=== PATIENT | male | born 1990 | race Caucasian/White ===

== ENCOUNTER 2017-10-31 15:42 | Emergency (ER) | payer MEDICAID, SELFPAY ==
[2017-10-31 15:44] VITALS: BP 135/88; PULSE 84; RESP 16; TEMP 36.4; O2SAT 98
--- NOTE | 2017-10-31 16:01 | ED.GENADUL_ITS ---
Disposition Clinical Impression: Back pain, Urinary retention Disposition: LYRIC SMALL ([facility]) Condition: Stable Medical Decision Making - Medical Decision Making This is a 27-year-old male who presents with left-sided back pain with radiation of the pain down his left buttock and left leg stopping at the knee and the posterior aspect. It occurred while watching off of a rock at [facility]. The pain did not occur from the landing, he did not landed first on his neck. He landed very softly with no significant pain from the actual landing in the water. Physical exam demonstrates mild midline tenderness in the lower thoracic and upper lumbar vertebra. No signs of saddle anesthesia, good rectal tone, good muscle strength and sensation in his lower extremities. I see no physical exam findings suggestive of spinal cord compression. Due to his history of back problems, and his current pain now we will treat with analgesia, and obtain imaging to evaluate for any potential thoracic or lumbar pathology. I feel that if imaging is negative at this time with no neurologic deficits or signs or symptoms of red flags concerning for cord compression he will most likely be able to be discharged home if pain can be controlled or improved. CT imaging has returned and demonstrates per virtual radiology no evidence of acute bony abnormality, or cord compression for the thoracic spine lumbar spine and pelvis. Reevaluation of the patient after medications demonstrates continued notable back pain. We did have the patient urinate, and a post urination bladder scan reveals 300 mL of retained urine. Patient states that he cannot feel the need to pee anymore, and feels like nothing is in there. We attempted for 30 minutes to have continued urination and the patient had no additional urination. In addition to this I did perform a repeat rectal exam, and on repeat exam the patient's rectal tone is concerning for a decreased compared to prior initial examination. With notable urinary retention, in spite of negative CT imaging was very concerned for potential cord injury. I did contact the [facility] neurosurgery team, and discussed the case with them. We have no MRI capabilities here in the weekend with the patient's acute symptoms I feel he does need an urgent MRI. I discussed the case with Dr. Colón, he agrees with this plan and recommends immediate transfer for further evaluation for any year to year transfer. I discussed the case with who accepted the patient for transfer via EMS for an ER to ER transfer. I have extensively reviewed the treatment plan with the patient. I have addressed all patient concerns at this time. I have also discussed the plan with the admitting physician and they agree with the current assessment and plan and have agreed to assume responsibility for the patient. All parties demonstrate verbal understanding and agreement with our assessment and plan at this time. History of Present Illness - General Chief complaint: Nk/Back Pain Stated complaint: BACK INJ Time Seen by Provider: 10/31/17 15:45 - History of Present Illness Initial comments: This is a 27-year-old male with no past medical history who presents for left back pain. 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 He states that today he was jumping off a rock at [facility], and as soon as he lifted off with his left foot he noticed significant pain in his back going down his left buttock and down his leg on the left. He did not land on any rocks, or have any trauma. After he was in the water he had discontinued pain, which was worsened with movement or palpation. Position of these included a flexed position with right side bending of the lumbar spine. Symptoms were worsened with movement, palpation, and movement of the leg and hip. The patient admits to a burning pain in the back of his leg extending down to his posterior knee, but denies any numbness, tingling, or weakness. He denies any bowel or bladder incontinence. He denies any saddle anesthesia. He denies vomiting, diarrhea, chest pain, shortness of breath, fever chills rash. He denies any previous surgeries, other medical problems, pertinent family history, IV illicit drug use. He has no other complaints at this time. - Related Data Acetaminophen 1,000 mg PO PRN PRN 12/14/16 Allergies Allergy/AdvReac Type Severity Reaction Status Date / Time No Known Allergies Allergy Unverified 10/31/17 15:48 Review of Systems Other: 10 point review of systems was performed, pertinent positives and negatives are noted in the history of present illness. Past Medical History - Past Medical History Medical history: no medical history Surgical history: no surgical history - Social History Alcohol use: none Drug use: none General Exam - Other Other exam information: 1.Const: Well-nourished, Well-developed, appearing stated age 2.Eyes: PERRL, no conjunctival injection, and symmetrical lids. 3.ENT: Atraumatic external nose and ears. Moist MM. Neck: Symmetric, trachea midline, No thyromegaly. 4.CVS: +S1/S2, No murmurs or gallops. Peripheral pulses 2+ and equal in all extremities. Brisk capillary refill in all extremities. 5.RESP: Unlabored respiratory effort. Clear to auscultation bilaterally. No wheezes rales or rhonchi 6.GI: Soft, Nontender/Nondistended, No hepatosplenomegaly. No guarding or rebound. 7.MSK: Normocephalic/Atraumatic, Extremities w/o deformity or ttp No cyanosis or clubbing, Normal movement of all extremities, No midline tenderness to palpation over the CS spine. He does have tenderness over his lower thoracic spine and upper lumbar spine for midline palpation. Mild tenderness for paraspinal regions bilaterally. Patient has +5 out of 5 strength in the lower extremities in dorsiflexion and plantarflexion, knee flexion and extension, hip flexion and extension. There is +2 over 2 dorsalis pedis pulses bilaterally. There is normal sensation to the skin with light touch at the foot, knee, and hip. Normal saddle sensation. Good sensation over the deep sural nerve area bilaterally. Hip is stable. Pelvis is stable. Worsening pain with flexion and extension of the left hip. Good rectal tone is noted on exam. Reflexes are +2 over 4 in the patellar. +5 out of 5 strength in the medial, ulnar, radial nerve distribution bilaterally in the hands as well as intact light touch sensation to these dermatomes on the hands. 8.Skin: Warm, Dry. No rashes or lesions. 9.Neuro: front line leader II-XII grossly intact. Sensation grossly intact, no focal neurologic deficits. 10.Psych: (AAO) x3. Appropriate mood and affect Course Vital Signs - 24 hr 10/31/17 15:44 Temperature 36.4 C L Pulse 84 Respiratory 16 Rate Blood Pressure 135/88 Pulse Oximetry 98
--- NOTE | 2017-10-31 16:01 | DI.RPTCT_ITS ---
SYMPTOM/DIAGNOSIS: MIDLINE LUMBAR PAIN AFTER JUMPING OFF ROCK. CONCERN FOR SPINAL CORD CT THORACIC SPINE: Multiple contiguous axial images of the thoracic spine were obtained. Sagittal and coronal reformatted images were evaluated on the [employer] work station. There is normal alignment. No acute fractures or subluxations. Paraspinal soft tissues are unremarkable. IMPRESSION: Negative CT scan of the thoracic spine. CT LUMBAR SPINE: Multiple contiguous axial images of the lumbar spine were obtained. Sagittal and coronal reformatted images were evaluated on the [employer] work station. There are no priors for comparison. There is normal alignment of the lumbar spine. No acute fractures or subluxations are seen. Mild degenerative changes are present. The paraspinal soft tissues are unremarkable. At L4-L5 there is a diffuse disc bulge with hypertrophy of the ligamentum flavum and facets causing mild narrowing of the central spinal canal. IMPRESSION: No acute abnormality in the lumbar spine.
[2017-10-31] MEDS: Lidocaine 5% Patch 1 PATCH TP (16:09)
[2017-10-31] MEDS: Acetaminophen 500 MG TAB 1000 MG PO (16:09)
[2017-10-31] MEDS: Normal Saline 1,000 ML 1000 ML IV (16:11)
[2017-10-31] MEDS: methylPREDNISolone SUCC 125 MG VIAL IVP (16:14)
[2017-10-31] MEDS: Ketorolac 30 MG/ML VIAL IVP (16:17)
--- NOTE | 2017-10-31 17:37 | DI.RPTCT_ITS ---
SYMPTOM/DIAGNOSIS: LOWER BACK PAIN CT SCAN PELVIS: Non contrast examination was performed. No acute fracture or dislocation is identified. The pelvic structures appear grossly unremarkable. Soft tissues are unremarkable. IMPRESSION: Negative examination.
--- NOTE | 2017-10-31 17:38 | DI.VRAD_ITS ---
EXAM: CT Thoracic Spine Without Intravenous Contrast CLINICAL HISTORY: 27 years old, male; Injury or trauma; Fall; Initial encounter; Blunt trauma (contusions or hematomas); Injury details: Midline lumbar pain, jumping off rock. Concern for spinal cord injury TECHNIQUE: Axial computed tomography images of the thoracic spine without intravenous contrast. All CT scans at this facility use at least one of these dose optimization techniques: automated exposure control; mA and/or kV adjustment per patient size (includes targeted exams where dose is matched to clinical indication); or iterative reconstruction. COMPARISON: No relevant prior studies available. FINDINGS: No focal subluxation. No acute fracture. Paraspinal soft tissues unremarkable. Impression: No evidence of acute bony abnormality. EXAM: CT Lumbar Spine Without Intravenous Contrast CLINICAL HISTORY: 27 years old, male; Injury or trauma; Fall; Initial encounter; Blunt trauma (contusions or hematomas); Injury details: Midline lumbar pain, jumping off rock. Concern for spinal cord injury TECHNIQUE: Axial computed tomography images of the lumbar spine without intravenous contrast. All CT scans at this facility use at least one of these dose optimization techniques: automated exposure control; mA and/or kV adjustment per patient size (includes targeted exams where dose is matched to clinical indication); or iterative reconstruction. COMPARISON: No relevant prior studies available. FINDINGS: No focal subluxation. No acute fracture. Paraspinal soft tissues unremarkable. Impression: No evidence of acute bony abnormality. Dictated and Authenticated by: Jimi Ramirez MD. Ordering:YESSI CELAYA MD
--- NOTE | 2017-10-31 17:39 | DI.VRAD_ITS ---
EXAM: CT Pelvis Without Intravenous Contrast CLINICAL HISTORY: 27 years old, male; Injury or trauma; Fall; Initial encounter; Blunt trauma (contusions or hematomas); Does not apply; Pelvic region; Injury details: Low back pain, jumped off rock; Additional info: Zeynep TECHNIQUE: Axial computed tomography images of the pelvis without intravenous contrast. All CT scans at this facility use at least one of these dose optimization techniques: automated exposure control; mA and/or kV adjustment per patient size (includes targeted exams where dose is matched to clinical indication); or iterative reconstruction. Coronal and sagittal reformatted images were created and reviewed. COMPARISON: CT - RENAL COLIC WO CONTRAST 2016-10-29 06:32 FINDINGS: Bony structures intact. No abnormal fluid collections. Joint spaces well-maintained. IMPRESSION: No evidence of acute bony abnormality. Dictated and Authenticated by: Jimi Ramirez MD. Ordering:YESSI CELAYA MD
[2017-10-31] MEDS: HYDROmorphone 2 MG/ML VIAL 1 MG IVP (18:13)
[2017-10-31 18:15] VITALS: BP 143/90; PULSE 92; RESP 18; O2SAT 98
[2017-10-31 18:15] LABS: Bilirubin Negative (Negative); Blood Negative (Negative); Clarity Clear; Glucose Negative (Negative); Ketones Trace mg/dL (Negative); Leukocyte Esterase Negative (Negative); Nitrite Negative (Negative); Urobilinogen 0.2 EU/dL (Up TO 0.2); pH 7.5 (5-8)
[2017-10-31 19:22] VITALS: BP 144/81; PULSE 68; RESP 16; O2SAT 100
== END 2017-10-31 19:25 | disposition short-term general hospital (02) ==
PROVIDERS: Emergency Provider Student in an Organized Health Care Education/Training Program
DX: M54.5 Low back pain (principal); R33.8 Other retention of urine
CPT/HCPCS: 96361; 96374; 96375; 99285; 72128; 72131; 72192; 81003; J1885; J2930

== ENCOUNTER 2023-09-10 14:59 | Emergency (ER) | payer MEDICAID, SELFPAY ==
[2023-09-10 15:02] VITALS: BP 137/97; PULSE 79; RESP 16; TEMP 37.1; O2SAT 96
--- NOTE | 2023-09-10 15:30 | ED.GENADUL_ITS ---
Discharge Plan Disposition Patient Disposition: Home Condition: Stable Discharge Details Clinical Impression: Back pain, Radiculopathy Primary Care Provider: Unknown,Unknown ED Provider: Tabitha Vela Home Meds and New Rx's Prescriptions: New meloxicam 15 mg tablet 15 mg PO DAILY Qty: 30 0RF Rx Instructions: with food methocarbamol 500 mg tablet 1,000 mg PO TID PRN (Reason: muscle spasm) Qty: 30 0RF lidocaine [Lidoderm] 5 % adhesive patch,medicated 1 patch topical DAILY Qty: 15 0RF Rx Instructions: leave on most painful area for up to 12 hrs No Action acetaminophen 500 MG tablet 1,000 mg PO PRN PRN Discharge Instructions Instructions: Low Back Pain ED Additional Instructions: Take medication as provided to help with your back pain. Continue massage and heat on the area. If your symptoms are worsening, you develop any weakness, or other concerns please return to the emergency department for reevaluation HPI General Date/Time Provider Initiated Documentation: 09/10/23 15:07 . Limitations to Documentation: no limitations . Information obtained by: patient . HPI Narrative: 33-year-old gentleman with chronic back pain presents for evaluation of of acute worsening of his left back pain. He reports that he started having some pain last night on the left lower back that he attributed to overwork. He used a massager without resolution of symptoms. He has not taken any medication for symptom improvement. Reports that he does have the pain radiating around to the front of his abdomen. He denies any testicular pain or swelling. He denies any bulging. He reports that the symptoms in the front are more of a pressure sensation. He denies his denies any change in his urine. Related Data Home Medications Medication Instructions Recorded Confirmed acetaminophen 500 mg tablet 1,000 mg PO PRN PRN 12/14/16 10/31/17 lidocaine 5 % topical patch 1 patch topical DAILY #15 ea 09/10/23 (Lidoderm) meloxicam 15 mg tablet 15 mg PO DAILY #30 tabs 09/10/23 methocarbamol 500 mg tablet 1,000 mg (2 x 500 mg) PO TID PRN 09/10/23 muscle spasm #30 tabs Previous Rx's Medication Instructions Recorded lidocaine 5 % topical patch 1 patch topical DAILY #15 ea 09/10/23 (Lidoderm) meloxicam 15 mg tablet 15 mg PO DAILY #30 tabs 09/10/23 methocarbamol 500 mg tablet 1,000 mg (2 x 500 mg) PO TID PRN 09/10/23 muscle spasm #30 tabs Allergies Allergy/AdvReac Type Severity Reaction Status Date / Time No Known Allergies Allergy Unverified 10/31/17 15:48 General Stated Complaint: Nk/Back Pain BRIT: 3 Exam Narrative Exam Narrative: Review of Systems: All systems reviewed & are unremarkable except as noted in HPI and below Well-developed, no acute distress NCAT PERRL, normal conjunctiva RRR, Unlabored respiratory effort Nondistended abdomen soft nontender, no appreciable hernia deferred per patient No midline back tenderness, step-off or deformity, there is some low left lateral paraspinal tenderness No CVA tenderness Extremities w/o deformity, no cyanosis, no edema No rashes or lesions. no focal neurologic deficits Appropriate mood and affect Course Vital Signs Vital signs: Vital Signs Temperature 37.1 C 09/10/23 15:02 Pulse 79 09/10/23 15:02 Respiratory Rate 16 09/10/23 15:02 Blood Pressure 137/97 H 09/10/23 15:02 Pulse Oximetry 96 09/10/23 15:02 Temperature 37.1 C 09/10/23 15:02 Temperature Source Oral 09/10/23 15:02 Pulse 79 09/10/23 15:02 Respiratory Rate 16 09/10/23 15:02 Blood Pressure 137/97 H 09/10/23 15:02 Pulse Oximetry 96 09/10/23 15:02 Oxygen Delivery Method Room Air 09/10/23 15:02 Oxygen Flow Rate 0 09/10/23 15:02 Pain Level 9 09/10/23 15:02 Lab/Test Results Lab/Test Results: Laboratory Tests Range/Units 09/10/23 15:21 WBC Cancelled RBC Cancelled Hgb Cancelled Hct Cancelled MCV Cancelled MCH Cancelled MCHC Cancelled RDW Cancelled Plt Count Cancelled MPV Cancelled Immature Gran % Cancelled Neutrophils % Cancelled Band Neutrophils % Cancelled Lymphocytes % Cancelled Atypical Lymphs % Cancelled Monocytes % Cancelled Eosinophils % Cancelled Basophils % Cancelled Metamyelocytes % Cancelled Myelocytes % Cancelled Promyelocytes % Cancelled Other Cells % Cancelled Nucleated RBC % Cancelled Absolute Neutrophils Cancelled Absolute Lymphocytes Cancelled Absolute Monocytes Cancelled Absolute Eosinophils Cancelled Absolute Basophils Cancelled RBC Morphology Cancelled Polychromasia Cancelled Hypochromasia Cancelled Poikilocytosis Cancelled Basophilic Stippling Cancelled Anisocytosis Cancelled Microcytosis Cancelled Macrocytosis Cancelled Spherocytes Cancelled Tear Drop Cells Cancelled Ovalocytes Cancelled Stomatocytes Cancelled Bon[place]-Turner Bodies Cancelled [place] Cells/Echinocytes Cancelled Acanthocytes (Spur) Cancelled Schistocytes Cancelled Sodium Cancelled Potassium Cancelled Chloride Cancelled Carbon Dioxide Cancelled Anion Gap Cancelled BUN Cancelled Creatinine Cancelled Est GFR (CKD-EPI 2020) Cancelled Glucose Cancelled Calcium Cancelled Magnesium Cancelled Total Bilirubin Cancelled AST Cancelled ALT Cancelled Alkaline Phosphatase Cancelled NT-Pro-B Natriuret Pep Cancelled Total Protein Cancelled Albumin Cancelled TSH Cancelled Medical Decision Making Emergent evaluation of low back pain. Initial differential includes acute on chronic pain. Kidney stone, radiculopathy. Patient has no complaints concerning for testicular torsion. He has no history of kidney stone. Will check a urinalysis to see if there is any hematuria there are signs of ketones which may be concerning for dehydration. Will give medication for pain relief. At this time I do not suspect an acute spinal cord emergency causing the symptoms as he has no neurologic changes or concerns for urinary retention. Urinalysis does not reveal any blood or signs of infection or ketones. Based on this, I do not feel that the patient has a kidney stone and does not need a CT at this time. No clinical signs of dehydration warranting IV fluid resuscitation. Reevaluation patient reports improvement in symptoms. I feel this is likely acute on chronic low back pain with some radiculopathy. Patient will be discharged with prescriptions for symptom relief. Recommend follow-up with PCP for ongoing pain control needs, but if symptoms worsen should return to the emergency department for reevaluation. Medical Records Medical records reviewed: Yes I reviewed the patient's medical records. Lab Data Lab results reviewed: Yes I reviewed the patient's lab results. Quality:SDOH Health Related Social Needs: No Data to Display PFSH All Active Problems (Updated 09/10/23 @ 16:11 by Tabitha Vela MD) Radiculopathy (Acute) Back pain (Acute) Tear of medial collateral ligament of left knee (Acute 12/05/16) Social History Smoking/Tobacco Use Status: Never Smoking risk assessment performed?: Yes Alcohol Intake: never Drug use: Socially Do you feel safe in your relationship?: Yes
[2023-09-10] MEDS: Ketorolac 10 MG TAB PO (15:52)
[2023-09-10] MEDS: Acetaminophen 500 MG TAB 1000 MG PO (15:52)
[2023-09-10] MEDS: Methocarbamol 500 MG TAB 1000 MG PO (15:52)
[2023-09-10 16:00] LABS: Bilirubin Negative (Negative); Blood Negative (Negative); Clarity Clear (Clear); Glucose Negative (Negative); Ketones Negative (Negative); Leukocyte Esterase Negative (Negative); Nitrite Negative (Negative); Specific Gravity >= 1.030 (1.005-1.025); Urobilinogen 0.2 mg/dL (Up to 0.2)
[2023-09-10 16:07] LABS: Bacteria Negative HPF (Negative); C & S Indicated? No; Casts 0-2 Hyaline LPF (Negative); Crystals Negative HPF (Negative); Epithelial Cells Rare HPF (Negative); Mucus Moderate (Negative); RBC 0-2 HPF (0-2); WBC 0-2 HPF (0-5)
== END 2023-09-10 16:30 | disposition home or self-care (01) ==
PROVIDERS: Emergency Provider Emergency Medicine
DX: M54.16 Radiculopathy, lumbar region (principal)
CPT/HCPCS: 80053; 99283; 81003; 81015; 83735; 83880; 84443; 85025

== ENCOUNTER → 2023-09-17 00:21 | Outpatient (CLI) | payer MEDICAID, SELFPAY ==
--- NOTE | 2023-09-17 15:20 | DI.RAD_ITS ---
Exam(s) XR LUMBAR SPINE COMPLETE EXAM: XR LUMBAR SPINE COMPLETE CLINICAL HISTORY: Acute L1 L radiculopathy, R/O DDD/DJD, hx L45 lami, M54.17, M51.36. TECHNIQUE: 2D digital imaging was performed. Five views. COMPARISON: CT RENAL COLIC WO CONTRAST from 10/29/2016 CT PELVIC/LOWER ABD WITHOUT CONT from 10/31/2017 FINDINGS: BONES: Stable mild anterior wedging of the L2 vertebral body. No fracture or destructive lesion. Sm all endplate osteophytes noted at multiple levels. Mild facet degenerative changes present greatest at L5-S1. No spondylolysis. DISKS: Severe narrowing L5-S1 disc space worsening when compared with 2018. Remaining intervertebra l disc spaces are maintained. ALIGNMENT: Lumbar spinal alignment is within normal limits. No spondylolisthesis or scoliosis. SOFT TISSUE: Normal. IMPRESSION: Advanced degenerative disc changes at L5-S1. DATA REPOSITORY: RADIATION DOSE DELIVERED:
== END ==
PROVIDERS: Visit Provider Family Medicine
DX: M54.17 Radiculopathy, lumbosacral region (principal); M51.36 Other intervertebral disc degeneration, lumbar region
CPT/HCPCS: 72110